=== PATIENT | male | born 1935 | race Caucasian/White ===

== ENCOUNTER 2021-07-27 16:23 | Emergency (ER) | payer MEDICARE, OTHER ==
[~2021-07-27] VITALS: Ht 188 cm; Wt 90.7 kg
[~2021-07-27 16:23] MED LIST: ASPI-605 PO; BENA10TA74 PO; CIPR-263 PO; DIGO125T PO; DILT-2 PO; HYDR-4354 PO; LOSA25TA27 PO; SIMV-46 PO
[2021-07-27 17:00] LABS: *BILIRUBIN,URIN NEGATIVE (NEGATIVE); *BLOOD, URINE 3+ (NEGATIVE); *CLARITY,URINE TURBID (CLEAR); *COLOR,URINE Brown (YELLOW); *KETONES,URINE TRACE (NEGATIVE); *UROBILINOGEN,URINE 0.2 E.U./dl (NORMAL); LEUKOCYTE ESTERASE ,URINE 3+ (NEGATIVE); NITRITE, URINE NEGATIVE (NEGATIVE); UGLUCOSE NEGATIVE (NEGATIVE)
[2021-07-27] MEDS ORDERED: NITR100C11 PO (17:30)
--- NOTE | 2021-07-27 17:37 | NUR ---
Discuss positive urine results with son on the phone assisting with translation. Patient discharged to home in stable condition. Written and verbal after care instructions given. Patient verbalizes understanding of instructions. Stressed follow up or return to ER for worsening s/s. Pt denies having any further questions.
[2021-07-27 17:38] VITALS: BP 150/92
[2021-07-27 20:07] LABS: BACTERIA,URINE FEW /HPF (NONE SEEN); RBC,URINE TNTC /HPF (0-3); SQUAMOUS EPITHELIAL CELL,UR FEW /HPF (NONE SEEN); WBC,URINE TNTC /HPF (0-3)
== END 2021-07-27 17:37 | disposition home or self-care (01) ==
LOC: ER 16:27
DX: N39.0 Urinary tract infection, site not specified (principal); N40.0 Benign prostatic hyperplasia without lower urinary tract symptoms; Z87.440 Personal history of urinary (tract) infections; I10 Essential (primary) hypertension; I48.91 Unspecified atrial fibrillation; Z79.82 Long term (current) use of aspirin; Z79.899 Other long term (current) drug therapy
CPT/HCPCS: 87077; 87086; A4663